=== PATIENT | female | born 1990 | race African-American/Black ===

== ENCOUNTER 2020-04-03 20:33 | Emergency (ER) | payer SELFPAY ==
[~2020-04-03] VITALS: Ht 167.6 cm; Wt 82.6 kg
[2020-04-03 20:45] VITALS: BP 128/76
--- NOTE | 2020-04-03 20:45 | NUR ---
ED Nurse Note: pt ambulated into ed from home co lower abdominal pain and PAVON. pt stated that she was instructed by her chiropractor to come to the ER d/t an abnormal incidental finding during an xray at a routine visit. Pt denies pain at this time but states that pain is 8/10 when pain does occur. Pt vss no ss of distress noted. Will continue to monitor.
--- NOTE | 2020-04-03 20:50 | NUR ---
ED Nurse Note: ERMD at bedside. UA sent to lab
--- NOTE | 2020-04-03 21:01 | Emergency Room Report ---
History of Present Illness General Chief Complaint: Abdominal Pain Source: Patient Present Illness HPI Patient presents with reports that she had an abnormal finding on an x-ray Patient reports that she was seen by a chiropractor for discomfort to her shoulder and back area She reports being told by the chiropractor that there was an abnormal finding pea-sized in the pelvic area And was recommended to follow-up at urgent care Patient presents here for further evaluation Initially there was reports of abdominal pain however patient states that she has no abdominal pain She does have abnormal menstrual cycle And her last menstrual cycle was in October denies any chest pain or shortness of breath Denies any vomiting or diarrhea denies any vaginal discharge or pelvic pain Allergies: Coded Allergies: No Known Allergies (Unverified , 04/03/20) COVID-19 Screening Contact w/high risk pt: No Recent Travel to affected area: No Experienced COVID-19 symptoms?: No COVID-19 Testing performed POCK[employer]ED [employer]ING [employer]ER: No Patient History Past Medical History: see triage record Now: Yes - unk : 3 Para: 3 Reviewed Nursing Documentation: PMH: Agreed; PSxH: Agreed Nursing Documentation-PMH Past Medical History: No Stated History Review of Systems All Other Systems: negative except mentioned in HPI Physical Exam Vital Signs Date Time Temp Pulse Resp B/P (MAP) Pulse Ox O2 Delivery O2 Flow Rate FiO2 04/03/20 20:35 98.2 86 18 128/76 (93) 97 Room Air Sp02 EP Interpretation: reviewed, normal General Appearance: well appearing, no apparent distress Head: normocephalic, atraumatic Eyes: bilateral eye PERRL, bilateral eye EOMI ENT: hearing grossly normal, normal pharynx, TMs + canals normal, uvula midline Neck: full range of motion, supple, no meningismus, no bony tend Respiratory: lungs clear, normal breath sounds, no rhonchi, no respiratory distress, no retraction, no accessory muscle use Cardiovascular #1: normal peripheral pulses, regular rate, rhythm, no edema, no gallop, no JVD, no murmur Gastrointestinal: normal bowel sounds, non tender, soft, no mass, no organomegaly, non-distended, no guarding, no hernia, no pulsatile mass, no rebound Genitourinary: no CVA tenderness Musculoskeletal: normal inspection Neurologic: motor strength/tone normal, rehab nursing tech III-XII nml as tested, oriented x3 , sensory intact, responsive Psychiatric: mood/affect normal Skin: no rash Lymphatic: normal inspection, no adenopathy Medical Decision Making Diagnostic Impression: Primary Impression: incidental xray abnormality ER Course Multiple differentials and consideration including but not limited to ovarian cyst, fibroid, urine stone Patient description is of a small pea-sized abnormality on pelvic x-ray Patient does not have the official report of the imaging Patient does not require emergent process for this is hemodynamically stable And requires close outpatient follow-up UA: Negative , small blood Last Vital Signs Date Time Temp Pulse Resp B/P (MAP) Pulse Ox O2 Delivery O2 Flow Rate FiO2 04/03/20 20:45 86 18 Room Air 04/03/20 20:45 98.2 128/76 97 Status: improved Patient Instructions: Abdominal Pain, Adult Additional Instructions: Discharged home in stable condition Patient is provided with the discharge instructions notified to follow up with primary doctor in the next 2-3 days otherwise return to the er with any worsening symptoms. Please note that this report is being documented using [employer] technology. This can lead to erroneous entry secondary to incorrect interpretation by the dictating instrument. Nurys Mora DO Apr 03, 2020 21:01
[2020-04-03 21:37] LABS: APPEARANCE,URINE SLIGHTLY CLOUDY; BILIRUBIN, URINE NEGATIVE (NEGATIVE); COLOR,URINE PALE YELLOW; GLUCOSE, URINE (UA) NEGATIVE (NEGATIVE); KETONES,URINE NEGATIVE (NEGATIVE); LEUKOCYTE ESTERASE ,URINE NEGATIVE (NEGATIVE); NITRITE,URINE NEGATIVE (NEGATIVE); PH,URINE 6 (4.5-8.0); PROTEIN,URINE NEGATIVE (NEGATIVE); UROBILINOGEN,URINE 1 MG/DL (0.0-1.0)
[2020-04-03 21:56] VITALS: BP 128/76
--- NOTE | 2020-04-03 21:56 | NUR ---
ER DISCHARGE NOTE: Patient is cleared to be discharged home per ERMD, pt is aox4, 99% on room air, with stable vital signs. pt was given dc instructions, pt was able to verbalize understanding, pt id band removed. pt is able to ambulate with steady gait. pt took all belongings.
== END 2020-04-03 21:56 | disposition home or self-care (01) ==
LOC: EMR 21:56
DX: R10.9 Unspecified abdominal pain (principal)
CPT/HCPCS: 81003; 81025; 99282